=== PATIENT | female | born 1945 | race Caucasian/White ===

== ENCOUNTER 2019-08-24 12:04 | Outpatient (CLI) | payer MEDICARE, OTHER, SELFPAY ==
[2019-08-24 12:41] LABS: Basophils % 0.2 %; Eosinophils # 0.1 10^3/uL (0.0-0.8); Eosinophils % 0.3 %; Hematocrit 43.7 % (37.0-47.0); Hemoglobin 13.8 g/dL (11.5-15.3); Lymphocytes # 12.8 10^3/uL (0.8-4.8); Lymphocytes % 74.4 %; Mean Corpuscular HGB Conc 31.6 g/dL (30.0-36.0); Mean Corpuscular Hemoglobin 27.6 pg (28.0-34.0); Mean Corpuscular Volume 87.4 fL (81-99); Mean Platelet Volume 10.8 fL (7.4-10.4); Monocytes # 0.4 10^3/uL (0.2-0.9); Monocytes % 2.4 %; Neutrophils # 3.9 10^3/uL (1.8-7.7); Neutrophils % 22.6 %; Nucleated Red Blood Cells % 0 %; Platelet Count 140 10^3/cmm (130-400); Red Cell Distribution Width 12.8 % (12.1-15.1); White Blood Count 17.2 10^3/uL (4.0-10.0)
[2019-08-24 12:57] LABS: Alanine Aminotransferase 12 U/L (0-33); Albumin Level 4.4 g/dL (3.5-5.2); Alkaline Phosphatase 68 IU/L (35-105); Anion Gap 15.4 (5-19); Aspartate Amino Transferase 16 U/L (0-32); Blood Urea Nitrogen 15 mg/dL (8-23); Calcium 9.9 mg/dL (8.5-10.5); Carbon Dioxide 29 mmol/L (22-29); Chloride 101 mmol/L (98-107); Ferritin 24 ng/mL (15-150); Globulin 2.5 g/dL (1.3-4.6); Glucose 135 mg/dL (65-115); Iron 57 ug/dL (37-145); Lactate Dehydrogenase 159 U/L (135-214); Percent Saturation 16.2 % (20-50); Potassium 4.4 mmol/L (3.5-5.1); Sodium 141 mmol/L (136-145); Total Bilirubin 0.3 mg/dL (0.15-1.2); Total Iron Binding Capacity 351 mcg/dl; Total Protein 6.9 g/dL (6.6-8.7); Unsaturated Iron Binding 294 ug/dL (112-347)
[2019-08-24 13:10] LABS: Slide Review Slide Review Perform
--- NOTE | 2019-08-26 07:58 | ONC FU_ITS ---
Dr. Hilario Patient Follow-Up Note Patient: Zach Coffey Unit #: [id number]: 1945 Dicatated By: Joey Hilario M.D.Date of Visit:Aug 24, 2019 Onc Med Follow-up/Prog Note Chief Complaint: Chronic lymphocytic leukemia/iron deficiency anemia. History of Present Illness: This is a 74 year-old woman with chronic lymphocytic leukemia and iron deficiency anemia. The leukemia was initially diagnosed by peripheral blood flow cytometry in December of 2010. Clinically she appeared to have early stage disease, and thus far she has just been managed with observation. At the time of her initial evaluation, she also had evidence of iron deficiency, though she was just mildly anemic. She had been unable to tolerate oral iron supplements. She did complete parenteral iron replacement with Venofer in February 2012. In October 2013 she had recurrence of the anemia with her hemoglobin at that time having dropped to 9.6 g. The red cell indices were hypochromic/microcytic. I did opt to treat her again with a course of IV Venofer, which she completed in November 2013. She had a good clinical response. As of December 2017 she had become iron deficient again. She had a good response to parenteral iron replacement with Injectafer. Her other medical illnesses include hypertension, hyperlipidemia, type 2 diabetes, and GERD. She also has chronic fatigue and some chronic pain. She is a nonsmoker. INTERIM HISTORY: She is seen for a scheduled visit. I had last seen her in April, at that time she was recovering from a bout of shingles which had started 2 months earlier. At that point she was still having significant postherpetic neuralgia. She has since then been feeling better, though it has been very gradual. She still has some fatigue, though her energy is better now, as she had been exhausted. Her ECOG score is 1. She has good appetite. She has not had fever. She does report having some hot flashes. She recently has been in treatment for a yeast infection in her mouth. She has a morning cough. She does not complain of shortness of breath or chest pain. She was having constipation, but her bowels lately have been better. Bladder function has been okay. She has fairly generalized arthritis pain and she has lower back pain, but it is being managed adequately with gabapentin and Aleve. She has no focal neurologic symptoms. Medications: Aleve 1 Tablet (of 220 mg) Oral PRN, Ascorbic Acid 1 Tablet (of 500 mg) Oral daily, Gabapentin 1 Capsule (of 300 mg) Oral at bedtime, GlipiZIDE 1 (5 mg) Tablet Oral daily, MetFORMIN HCl 1 (500 mg) Tablet Oral b.i.d., Osteo Bi-Flex Joint Shield 1 Tablet Oral daily, 1 Tablet Oral daily, Singulair 1 Tablet (of 10 mg) Oral at bedtime Allergies: No Known Allergies. Review of Systems: Constitutional - She had a rough 4 months because of shingles. She still has fatigue, though her energy is better than it was, as she had been exhausted. She is trying to do all that she can. She has good appetite. She has not had fever. She does have some hot flashes. Her ECOG score is 1, ENMT - She has sinus congestion/drainage with a cough in the mornings. She has had some mouth sores. No sore throat or difficulty swallowing, Hematologic/Lymphatic - No abnormal bruising or bleeding, Respiratory - No shortness of breath. No pleuritic pain or hemoptysis, Cardiovascular - No angina pain. No palpitations, Gastrointestinal - No nausea or vomiting. She has heartburn off and on. She normally stays constipated, but it has been better lately. No blood in the stool or black stools, Genitourinary (F) - No dysuria or hematuria. No urinary frequency. No urgency or incontinence, Musculoskeletal - She has pain and stiffness in her back when she first gets up in the morning. She has swelling in her joints, Integumentary - No skin complications, Neurologic - She has had some headaches. She has some dizziness. No numbness/paresthesias or other focal neurologic symptoms, Psychiatric - No anxiety or depression. She has a hard time getting to sleep at night, which is nothing new for her. Vital Signs: Performed on Aug 24, 2019 13:50 Height - 64.00 in Weight - 179.2 lbs (HIGH) BSA - 1.87 sq.m BMI - 30.76 (HIGH) Temperature - 98.6 F Pulse - 89 /min Respiration - 18 /min BP - 120/66 mm(hg) O2 Sat - 92 % (LOW) Pain - 0 Physical Examination: Constitutional - She looks pretty good generally, Eyes - Sclerae nonicteric. Conjunctivae clear, ENMT - Her tongue is slightly coated. There are no other lesions noted in the oral cavity, Hematologic/Lymphatic - There are small cervical nodes bilaterally. There is a small axillary node on the left, approximately 1 cm, Respiratory - Lungs are clear with good air movement bilaterally, Cardiovascular - Heart rhythm is regular. There is a II/ systolic murmur. There is no gallop or rub noted, Abdomen - Soft. Liver and spleen are not enlarged. There is no abdominal mass or ascites noted and there is no inguinal adenopathy, Extremities - No edema. Pedal pulses are palpable bilaterally, Integumentary - She has no residual skin eruption, Neurologic - No focal neurologic deficits noted. Lab/Imaging: Test performed on Aug 24, 2019 12:20 Ferritin 24 ng/mL Iron 57 ug/dL LDH (Total) 159 U/L Sodium 141 mmol/L Potassium 4.4 mmol/L Chloride 101 mmol/L CO2 29 mmol/L UIBC 294 ug/dL Anion Gap 15.4 BUN 15 mg/dL Creatinine 0.7 mg/dL Cr Clearance (Est) 93.22 mL/min Glucose 135 mg/dL Calcium 9.9 mg/dL Protein, Total 6.9 g/dL Albumin 4.4 g/dL Globulin 2.5 g/dL Bilirubin, Total 0.3 mg/dL ALT (SGPT) 12 U/L AST (SGOT) 16 U/L Alkaline Phosphatase 68 IU/L WBC 17.2 10 3/uL RBC 5.00 10 6/uL HGB 13.8 g/dL HCT 43.7 % MCV 87.4 fL MCH 27.6 pg MCHC 31.6 g/dL RDW 12.8 % Platelet Count 140 10 3/cmm MPV 10.8 fL Neutrophils 3.9 10 3/uL Lymphocytes 12.8 10 3/uL Monocytes 0.4 10 3/uL Eosinophils 0.1 10 3/uL Basophils 0.0 10 3/uL Neutrophil % 22.6 % Lymphocyte % 74.4 % Monocyte % 2.4 % Eosinophil % 0.3 % Basophils % 0.2 % CBC Slide Review Slide Review Perform Test performed on Jul 31, 2019 09:56 TSH 2.59 uU/mL Cholesterol, Total 320.0 mg/dL HDL Cholesterol 58.0 mg/dL LDL Cholesterol 224.6 mg/dL VLDL Cholesterol 37.4 mg/dL Triglycerides 187.0 mg/dL Hemoglobin A1C 6.8 % Manual Lymphocytes 61.2 % Manual Monocytes 5.3 % Impression: 1. The patient has early stage chronic lymphocytic leukemia. She has been on observation with no evidence of disease progression. 2. She also has had recurrent iron deficiency anemia which responded well to parenteral iron replacement with Venofer. Her other medical illnesses include: 3. Hypertension. 4. Hyperlipidemia. 5. Type II diabetes. 6. GERD. 7. She has chronic musculoskeletal pain. During followup there has been no significant progression of the CLL and there has been no indication for treating it. She required treatment for iron deficiency anemia on several occasions, most recently in December 2017. She required treatment for herpes zoster in the fall 2018. She has been showing gradual recovery. She has otherwise been doing well clinically. Thus far there has been no further recurrence of the iron deficiency and there is been no significant progression of the chronic lymphocytic leukemia. Plan: She remains on observation/expectant management for the chronic lymphocytic leukemia and for the anemia. I will see her again in 6 months, or sooner as needed. Signed By: Joey Hilario M.D. <<Signature on File>>
== END 2019-08-24 12:05 | disposition home or self-care (01) ==
LOC: ONCMED 12:04
PROVIDERS: Family Provider Family Medicine; PCP Family Medicine; Visit Provider Internal Medicine Medical Oncology
DX: C91.10 Chronic lymphocytic leukemia of B-cell type not having achieved remission (principal); D50.9 Iron deficiency anemia, unspecified; I10 Essential (primary) hypertension; E78.5 Hyperlipidemia, unspecified; E11.9 Type 2 diabetes mellitus without complications; K21.9 Gastro-esophageal reflux disease without esophagitis; G89.29 Other chronic pain; M79.18 Myalgia, other site
CPT/HCPCS: 36415; 80053; 82728; 83540; 83550; 83615; 85025; G0463

== ENCOUNTER 2020-02-27 06:13 | Outpatient (CLI) | payer MEDICARE, BC, SELFPAY ==
[2020-02-27 13:51] LABS: Basophils # 0.1 10^3/uL (0.0-0.1); Basophils % 0.3 %; Eosinophils % 0.1 %; Hematocrit 47.6 % (37.0-47.0); Hemoglobin 14.1 g/dL (11.5-15.3); Lymphocytes # 16.4 10^3/uL (0.8-4.8); Lymphocytes % 73.7 %; Mean Corpuscular HGB Conc 29.6 g/dL (30.0-36.0); Mean Corpuscular Hemoglobin 27.3 pg (28.0-34.0); Mean Corpuscular Volume 92.1 fL (81-99); Mean Platelet Volume 10.9 fL (7.4-10.4); Monocytes # 0.6 10^3/uL (0.2-0.9); Monocytes % 2.9 %; Neutrophils # 5.06 10^3/uL (1.8-7.7); Neutrophils % 22.8 %; Nucleated Red Blood Cells % 0 %; Platelet Count 162 10^3/cmm (130-400); Red Blood Count 5.17 10^6/uL (4.1-5.3); Red Cell Distribution Width 13.4 % (12.1-15.1); White Blood Count 22.2 10^3/uL (4.0-10.0)
[2020-02-27 14:31] LABS: Alanine Aminotransferase 20 U/L (0-33); Alkaline Phosphatase 68 IU/L (35-105); Anion Gap 18.5 (5-19); Aspartate Amino Transferase 21 U/L (0-32); Blood Urea Nitrogen 23 mg/dL (8-23); Calcium 9.6 mg/dL (8.5-10.5); Carbon Dioxide 24 mmol/L (22-29); Chloride 101 mmol/L (98-107); Globulin 2.2 g/dL (1.3-4.6); Glucose 79 mg/dL (65-115); Lactate Dehydrogenase 223 U/L (135-214); Osmolality Calculated 284 mOsm/kg (285-295); Potassium 4.5 mmol/L (3.5-5.1); Sodium 139 mmol/L (136-145); Total Bilirubin 0.3 mg/dL (0.15-1.2); Total Protein 7.2 g/dL (6.6-8.7)
== END 2020-02-27 06:14 | disposition home or self-care (01) ==
PROVIDERS: PCP Family Medicine; Visit Provider Internal Medicine Medical Oncology
DX: C91.10 Chronic lymphocytic leukemia of B-cell type not having achieved remission (principal); D50.8 Other iron deficiency anemias; E11.9 Type 2 diabetes mellitus without complications; M54.5 Low back pain; R53.83 Other fatigue; R13.10 Dysphagia, unspecified
CPT/HCPCS: 80053; 83615; 85025

== ENCOUNTER 2020-08-27 13:12 | Outpatient (CLI) | payer MEDICARE, BC, SELFPAY ==
[2020-08-27 14:00] LABS: Hematocrit 43.3 % (37.0-47.0); Hemoglobin 13.3 g/dL (11.5-15.3); Mean Corpuscular HGB Conc 30.7 g/dL (30.0-36.0); Mean Corpuscular Hemoglobin 26.4 pg (28.0-34.0); Mean Corpuscular Volume 85.9 fL (81-99); Mean Platelet Volume 11.3 fL (7.4-10.4); Platelet Count 171 10^3/cmm (130-400); Red Blood Count 5.04 10^6/uL (4.1-5.3); Red Cell Distribution Width 15.8 % (12.1-15.1); White Blood Count 16.7 10^3/uL (4.0-10.0)
[2020-08-27 14:26] LABS: Alanine Aminotransferase 14 U/L (0-33); Albumin Level 4.7 g/dL (3.5-5.2); Alkaline Phosphatase 67 IU/L (35-105); Anion Gap 14.1 (5-19); Aspartate Amino Transferase 17 U/L (0-32); Blood Urea Nitrogen 20 mg/dL (8-23); Calcium 9.8 mg/dL (8.5-10.5); Carbon Dioxide 27 mmol/L (22-29); Chloride 101 mmol/L (98-107); Glucose 88 mg/dL (65-115); Lactate Dehydrogenase 164 U/L (135-214); Osmolality Calculated 288 mOsm/kg (285-295); Potassium 4.1 mmol/L (3.5-5.1); Sodium 138 mmol/L (136-145); Total Bilirubin 0.3 mg/dL (0.15-1.2); Total Protein 6.7 g/dL (6.6-8.7)
[2020-08-27 15:29] LABS: Slide Review Slide Review Perform
[2020-08-27 15:30] LABS: Absolute Eosinophils 0.1 10^3/cmm (0.0-0.7); Absolute Segmented Neutrophil 6.3 10/cmm (1.6-7.1); Band Neutrophils Absolute 0.7 10^3/cmm (0.0-1.2); Eosinophils 1 %; Lymphocytes 51 %; Monocytes Absolute 0.3 10^3/cmm (0.1-0.6); Platelet Estimate Normal (Normal); Segmented Neutrophils 38 %; Smudge Cells 1+; Total Cells Counted 100 (0-100)
--- NOTE | 2020-08-30 16:04 | ONC FU_ITS ---
Dr. Hilario Patient Follow-Up Note Patient: Zach Coffey Unit #: [id number]: 1945 Dicatated By: Joey Hilario M.D.Date of Visit:Aug 27, 2020 Onc Med Follow-up/Prog Note Chief Complaint: Chronic lymphocytic leukemia/iron deficiency anemia. History of Present Illness: This is a 75 year-old woman with chronic lymphocytic leukemia and iron deficiency anemia. The leukemia was initially diagnosed by peripheral blood flow cytometry in December of 2010. Clinically she appeared to have early stage disease, and expectant management was recommended. At the time of her initial evaluation, she also had evidence of iron deficiency, though she was just mildly anemic. She had been unable to tolerate oral iron supplements. She did complete parenteral iron replacement with Venofer in February 2012. In October 2013 she had recurrence of the anemia with her hemoglobin at that time having dropped to 9.6 g. The red cell indices were hypochromic/microcytic. I did opt to treat her again with a course of IV Venofer, which she completed in November 2013. She had a good clinical response. As of December 2017 she had become iron deficient again. She had a good response to parenteral iron replacement with Injectafer. During that time there has been no indication to initiate any treatment for the CLL, as she continued to have mild, stable lymphocytosis and normal platelet counts. Her other medical illnesses include hypertension, hyperlipidemia, type 2 diabetes, and GERD. She also has chronic fatigue and some chronic pain. She is a nonsmoker. INTERIM HISTORY: She has been feeling pretty good generally. She does have fatigue, but she is able to do light work. ECOG score is 1. Her appetite is good. She has not had fever or night sweats. She does have hot flashes. She has some shortness of breath and wheezing, and she also has some cough. She occasionally has pain on the left side of the chest. She has just occasional acid reflux. She has chronic constipation. She is managing it with FISH oil and all of oil. She feels like her bladder has dropped, but bladder function remains adequate. She has pain in her neck and back and she says her arms have ached for a while. She also has pain in her hips, and she complains that she has knots of her spine. She has some sinus headaches. She sometimes has dizziness. She has some numbness in her hands, but that actually has improved somewhat. Medications: Aleve 1 Tablet (of 220 mg) Oral PRN, Ascorbic Acid 1 Tablet (of 500 mg) Oral daily, Gabapentin 1 Capsule (of 300 mg) Oral at bedtime, GlipiZIDE 1 (5 mg) Tablet Oral daily, MetFORMIN HCl 1 (500 mg) Tablet Oral b.i.d., Osteo Bi-Flex Joint Shield 1 Tablet Oral daily, 1 Tablet Oral daily, Singulair 1 Tablet (of 10 mg) Oral at bedtime Allergies: No Known Allergies. Vital Signs: Performed on Aug 27, 2020 15:19 Height - 64.00 in Weight - 174.6 lbs (LOW) BSA - 1.85 sq.m BMI - 29.97 Temperature - 98.0 F (LOW) Pulse - 79 /min Respiration - 16 /min BP - 165/94 mm(hg) (HIGH) O2 Sat - 97 % Pain - 6 Physical Examination: Constitutional - She looks pretty good generally, Eyes - Sclerae nonicteric. Conjunctivae clear, ENMT - There are no lesions noted in the oral cavity, Hematologic/Lymphatic - There are small cervical nodes bilaterally. There is a small supraclavicular node on the left. I do not feel any axillary adenopathy, Respiratory - Lungs are clear with good air movement bilaterally, Cardiovascular - Heart rhythm is regular. There is a II/ systolic murmur. There is no gallop or rub noted, Abdomen - Soft. Liver and spleen are not enlarged. There is no abdominal mass or ascites noted and there is no inguinal adenopathy, Extremities - No edema, Neurologic - No focal neurologic deficits noted. Lab/Imaging: Test performed on Aug 27, 2020 13:45 LDH (Total) 164 U/L Sodium 138 mmol/L Potassium 4.1 mmol/L Chloride 101 mmol/L CO2 27 mmol/L Anion Gap 14.1 BUN 20 mg/dL Creatinine 0.7 mg/dL Cr Clearance (Est) 89.49 mL/min Glucose 88 mg/dL Osmolality - Calculated 288 mOsm/kg Calcium 9.8 mg/dL Protein, Total 6.7 g/dL Albumin 4.7 g/dL Globulin 2.0 g/dL Bilirubin, Total 0.3 mg/dL ALT (SGPT) 14 U/L AST (SGOT) 17 U/L Alkaline Phosphatase 67 IU/L WBC 16.7 10 3/uL Manual Segs % 38 % Manual Bands % 4.0 % RBC 5.04 10 6/uL HGB 13.3 g/dL Manual Lymphs % 51 % Atypical Lymphs % 4.0 % HCT 43.3 % MCV 85.9 fL Total Cells Counted 100 Manual Monos % 2.0 % MCH 26.4 pg Manual Eos % 1 % MCHC 30.7 g/dL Manual Basos % 0.0 % RDW 15.8 % Platelet Count 171 10 3/cmm MPV 11.3 fL Smudge Cells 1+ CBC Slide Review Slide Review Perform Platelet Estimate Normal Manual Segs Abs 6.3 10/cmm Manual Bands Abs 0.7 10 3/cmm Manual Neutrophils Abs 7.0 10 3/cmm Manual Monocytes Abs 0.3 10 3/cmm Manual Eosinophils Abs 0.1 10 3/cmm Manual Basophils Abs 0.0 10 3/cmm Problem List: 1. Chronic lymphocytic leukemia, Hunter stage I. She has been on expectant management. 2. Iron deficiency anemia. 3. Hypertension. 4. Hyperlipidemia. 5. Type II diabetes. 6. GERD. 7. She has chronic fatigue and chronic musculoskeletal pain. Problems Addressed with this Encounter and Plan: 1. Patient with early stage chronic lymphocytic leukemia. She has managed expectantly. During follow-up there has been no indication to initiate any treatment. At this point she appears stable clinically with no obvious progression of the chronic lymphocytic leukemia. She remains on observation/expectant management. I will see her again in 6 months. 2. She has had recurrent iron deficiency anemia. She has had poor tolerance for oral iron supplements. She has responded well to parenteral iron replacement, most recently in December 2017. Her hemoglobin/hematocrit levels have since then remained stable. Signed By: Joey Hilairo M.D. <<Signature on File>>
== END 2020-08-27 13:13 | disposition home or self-care (01) ==
LOC: ONCMED 13:15
PROVIDERS: PCP Family Medicine; Visit Provider Internal Medicine Medical Oncology
DX: C91.10 Chronic lymphocytic leukemia of B-cell type not having achieved remission (principal); D50.8 Other iron deficiency anemias; E11.9 Type 2 diabetes mellitus without complications
CPT/HCPCS: 36415; 80053; 83615; 85007; 85025

== ENCOUNTER 2021-04-01 14:25 | Outpatient (CLI) | payer MEDICARE, BC, SELFPAY ==
[2021-04-01 15:23] LABS: Basophils # 0.1 10^3/uL (0.0-0.1); Basophils % 0.3 %; Eosinophils # 0.1 10^3/uL (0.0-0.8); Eosinophils % 0.2 %; Hematocrit 44.6 % (37.0-47.0); Hemoglobin 13.9 g/dL (11.5-15.3); Lymphocytes % 71.4 %; Mean Corpuscular HGB Conc 31.2 g/dL (30.0-36.0); Mean Corpuscular Hemoglobin 28.1 pg (28.0-34.0); Mean Corpuscular Volume 90.3 fl (81-99); Mean Platelet Volume 11.3 fL (7.4-10.4); Monocytes # 0.8 10^3/uL (0.2-0.9); Monocytes % 2.8 %; Neutrophils # 7.02 10^3/uL (1.8-7.7); Neutrophils % 25.1 %; Nucleated Red Blood Cells % 0 %; Platelet Count 242 10^3/cmm (130-400); Red Blood Count 4.94 10^6/uL (4.1-5.3); Red Cell Distribution Width 14.1 % (12.1-15.1)
[2021-04-01 16:03] LABS: Alanine Aminotransferase 12 U/L (0-33); Albumin Level 4.7 g/dL (3.5-5.2); Alkaline Phosphatase 76 IU/L (35-105); Anion Gap 15.8 (5-19); Aspartate Amino Transferase 16 U/L (0-32); Blood Urea Nitrogen 17 mg/dL (8-23); Carbon Dioxide 28 mmol/L (22-29); Chloride 100 mmol/L (98-107); Globulin 2.1 g/dL (1.3-4.6); Glucose 68 mg/dL (65-115); Iron 46 ug/dL (37-145); Lactate Dehydrogenase 198 U/L (135-214); Osmolality Calculated 290 mOsm/kg (285-295); Potassium 3.8 mmol/L (3.5-5.1); Sodium 140 mmol/L (136-145); Total Bilirubin 0.3 mg/dL (0.15-1.2); Total Iron Binding Capacity 382 mcg/dl; Total Protein 6.8 g/dL (6.6-8.7); Unsaturated Iron Binding 336 ug/dL (112-347)
[2021-04-01 17:37] LABS: Slide Review Slide Review Perform
--- NOTE | 2021-04-02 07:07 | ONC FU_ITS ---
Dr. Hilario Patient Follow-Up Note Patient: Zach Coffey Unit #: [id number]: [id number] Dicatated By: Joey Hilario M.D.Date of Visit:Apr 01, 2021 Onc Med Follow-up/Prog Note Chief Complaint: Chronic lymphocytic leukemia/iron deficiency anemia. History of Present Illness: This is a 76 year-old woman with chronic lymphocytic leukemia and iron deficiency anemia. The leukemia was initially diagnosed by peripheral blood flow cytometry in December of 2010. Clinically she appeared to have early stage disease, and expectant management was recommended. At the time of her initial evaluation, she also had evidence of iron deficiency, though she was just mildly anemic. She had been unable to tolerate oral iron supplements. She did complete parenteral iron replacement with Venofer in February 2012. In October 2013 she had recurrence of the anemia with her hemoglobin at that time having dropped to 9.6 g. The red cell indices were hypochromic/microcytic. I did opt to treat her again with a course of IV Venofer, which she completed in November 2013. She had a good clinical response. As of December 2017 she had become iron deficient again. She had a good response to parenteral iron replacement with Injectafer. During followup she has continued expectant management for the CLL, as there has been no indication for treatment. Her other medical illnesses include hypertension, hyperlipidemia, type 2 diabetes, and GERD. She also has chronic fatigue and some chronic pain. She is a nonsmoker. INTERIM HISTORY: She has been feeling pretty good generally. Her main complaint is that she has been having pain in her neck/right shoulder area. The pain radiates into the right arm all the way to the hand. She has started physical therapy. She also reports having pain associated with knots in the lower back on both sides, just above the hips. She has somewhat limited activity, but she is able to do light work. ECOG score is 1. Her appetite has been good. She has not had fever or night sweats, she does have some hot spells. She has sinus drainage and cough, attributable to allergies. She thinks she has had some yeast infection in her mouth and throat. She has occasional wheezing, but her breathing generally is pretty good. She does not complain of chest pain. She has very occasional acid reflux. She has some chronic constipation, though bowel function and bladder function remain adequate. She has occasional headache. She does not complain of dizziness. She has some numbness in her hands and in her left big toe. Medications: Aleve 1 Tablet (of 220 mg) Oral PRN, Ascorbic Acid 1 Tablet (of 500 mg) Oral daily, Gabapentin 1 Capsule (of 300 mg) Oral at bedtime, GlipiZIDE 1 (5 mg) Tablet Oral daily, MetFORMIN HCl 1 (500 mg) Tablet Oral b.i.d., Osteo Bi-Flex Joint Shield 1 Tablet Oral daily, 1 Tablet Oral daily, Singulair 1 Tablet (of 10 mg) Oral at bedtime Allergies: No Known Allergies. Vital Signs: Performed on Apr 01, 2021 16:14 Height - 64.00 in Weight - 175 lbs (HIGH) BSA - 1.85 sq.m BMI - 30.04 (HIGH) Temperature - 97.6 F (LOW) Pulse - 96 /min Respiration - 16 /min BP - 117/79 mm(hg) O2 Sat - 95 % (LOW) Pain - 6 Fatigue - 0 Physical Examination: Constitutional - She looks pretty good generally, Eyes - Sclerae nonicteric. Conjunctivae clear, ENMT - No lesions noted in the oral cavity, Hematologic/Lymphatic - There are small cervical nodes bilaterally. There is no clavicular or axillary adenopathy noted, Respiratory - Lungs are clear with good air movement bilaterally, Cardiovascular - Heart rhythm is regular. There is a II/ systolic murmur. There is no gallop or rub noted, Abdomen - Soft. Liver and spleen are not enlarged. There is no abdominal mass or ascites noted and there is no inguinal adenopathy, Extremities - No edema, Neurologic - No focal neurologic deficits noted. Lab/Imaging: Test performed on Apr 01, 2021 14:50 Iron 46 mcg/dL LDH (Total) 198 U/L Sodium 140 mmol/L Iron Binding Capacity (TIBC) 382 mcg/dl Potassium 3.8 mmol/L % Iron Saturation 12.0 % Chloride 100 mmol/L CO2 28 mmol/L UIBC 336 mcg/dL Anion Gap 15.8 BUN 17 mg/dL Creatinine 0.6 mg/dL Cr Clearance (Est) 103.08 mL/min Glucose 68 mg/dL Osmolality - Calculated 290 mOsm/kg Calcium 10.0 mg/dL Protein, Total 6.8 g/dL Albumin 4.7 g/dL Globulin 2.1 g/dL Bilirubin, Total 0.3 mg/dL ALT (SGPT) 12 U/L AST (SGOT) 16 U/L Alkaline Phosphatase 76 IU/L WBC 28.0 10 3/uL RBC 4.94 10 6/uL HGB 13.9 g/dL HCT 44.6 % MCV 90.3 fl MCH 28.1 pg MCHC 31.2 g/dL RDW 14.1 % Platelet Count 242 10 3/cmm MPV 11.3 fL Neutrophils 7.02 10 3/uL Lymphocytes 20.0 10 3/uL Monocytes 0.8 10 3/uL Eosinophils 0.1 10 3/uL Basophils 0.1 10 3/uL Neutrophil % 25.1 % Lymphocyte % 71.4 % Monocyte % 2.8 % Eosinophil % 0.2 % Basophils % 0.3 % NRBC % 0 % CBC Slide Review Slide Review Perform SLIDE REVIEWED AGREES WITH THE AUTO RESULT Test performed on Dec 12, 2020 09:10 TSH 3.838 uU/mL Cholesterol, Total 304.0 mg/dL HDL Cholesterol 52.0 mg/dL LDL Cholesterol 214.6 mg/dL VLDL Cholesterol 37.4 mg/dL Triglycerides 187.0 mg/dL Hemoglobin A1C 6.7 % Manual Lymphocytes 77.9 % Manual Monocytes 2.2 % Problem List: 1. Chronic lymphocytic leukemia, Hunter stage I. She has been on expectant management. 2. Iron deficiency anemia. 3. Hypertension. 4. Hyperlipidemia. 5. Type II diabetes. 6. GERD. 7. She has chronic fatigue and chronic musculoskeletal pain. Problems Addressed with this Encounter and Plan: 1. Patient with early stage chronic lymphocytic leukemia. She has been managed expectantly. During follow-up there has been some increase in her lymphocyte count, but thus far there has been no indication to initiate any treatment. She remains on observation/expectant management. I will see her again in 6 months. 2. She has had recurrent iron deficiency anemia. She has had poor tolerance for oral iron supplements. She has responded well to parenteral iron replacement, most recently in December 2017. She does have evidence of iron deficiency with her transferrin saturation low at 15%, but with normal hemoglobin/hematocrit levels she will just continue her oral iron supplementation as she is able to tolerate. Signed By: Joey Hilario M.D. <<Signature on File>>
== END 2021-04-01 14:26 | disposition home or self-care (01) ==
LOC: ONCMED 14:31
PROVIDERS: PCP Family Medicine; Visit Provider Internal Medicine Medical Oncology
DX: I10 Essential (primary) hypertension (principal); E78.5 Hyperlipidemia, unspecified; E11.9 Type 2 diabetes mellitus without complications; K21.9 Gastro-esophageal reflux disease without esophagitis; R53.82 Chronic fatigue, unspecified; G89.29 Other chronic pain; Z79.899 Other long term (current) drug therapy
CPT/HCPCS: 36415; 80053; 83540; 83550; 83615; 85025; 99214

== ENCOUNTER 2021-10-06 10:06 | Outpatient (CLI) | payer MEDICARE, BC, SELFPAY ==
[2021-10-06 10:51] LABS: Basophils # 0.1 10^3/uL (0.0-0.1); Basophils % 0.3 %; Eosinophils % 0.2 %; Hematocrit 42.9 % (37.0-47.0); Hemoglobin 13.7 g/dL (11.5-15.3); Lymphocytes # 14.3 10^3/uL (0.8-4.8); Mean Corpuscular HGB Conc 31.9 g/dL (30.0-36.0); Mean Corpuscular Hemoglobin 28.5 pg (28.0-34.0); Mean Corpuscular Volume 89.4 fl (81-99); Mean Platelet Volume 10.9 fL (7.4-10.4); Monocytes # 0.5 10^3/uL (0.2-0.9); Monocytes % 2.4 %; Neutrophils # 4.19 10^3/uL (1.8-7.7); Nucleated Red Blood Cells % 0 %; Platelet Count 157 10^3/cmm (130-400); Red Cell Distribution Width 13.5 % (12.1-15.1); White Blood Count 19.1 10^3/uL (4.0-10.0)
[2021-10-06 11:11] LABS: Alanine Aminotransferase 13 U/L (0-33); Albumin Level 4.7 g/dL (3.5-5.2); Alkaline Phosphatase 69 IU/L (35-105); Anion Gap 13.4 (5-19); Aspartate Amino Transferase 14 U/L (0-32); Blood Urea Nitrogen 15 mg/dL (8-23); Calcium 9.6 mg/dL (8.5-10.5); Carbon Dioxide 27 mmol/L (22-29); Chloride 103 mmol/L (98-107); Glucose 176 mg/dL (65-115); Iron 66 ug/dL (37-145); Lactate Dehydrogenase 161 U/L (135-214); Osmolality Calculated 293 mOsm/kg (285-295); Percent Saturation 18.3 % (20-50); Potassium 4.4 mmol/L (3.5-5.1); Sodium 139 mmol/L (136-145); Total Bilirubin 0.4 mg/dL (0.15-1.2); Total Iron Binding Capacity 359 mcg/dl; Total Protein 6.7 g/dL (6.6-8.7); Unsaturated Iron Binding 293 ug/dL (112-347)
--- NOTE | 2021-10-06 18:07 | ONC FU_ITS ---
Dr. Hilario Patient Follow-Up Note Patient: Zach Coffey Unit #: [id number]: 1945 Dicatated By: Joey Hilario M.D.Date of Visit:Oct 06, 2021 Onc Med Follow-up/Prog Note Chief Complaint: Chronic lymphocytic leukemia/iron deficiency anemia. History of Present Illness: This is a 76 year-old woman with chronic lymphocytic leukemia and iron deficiency anemia. The leukemia was initially diagnosed by peripheral blood flow cytometry in December of 2010. Clinically she appeared to have early stage disease, and expectant management was recommended. At the time of her initial evaluation, she also had evidence of iron deficiency, though she was just mildly anemic. She had been unable to tolerate oral iron supplements. She did complete parenteral iron replacement with Venofer in February 2012 and again in October 2013. She had a good clinical response. As of December 2017 she had become iron deficient again. At that time she had a good response to parenteral iron replacement with Injectafer. During followup she has continued expectant management for the CLL, as there has been no indication for treatment. Her other medical illnesses include hypertension, hyperlipidemia, type 2 diabetes, and GERD. She also has chronic fatigue and some chronic pain. She is a nonsmoker. She is seen for a follow-up visit. She indicates that in April she had a bad spell of chest congestion, but that did eventually resolve. She has continued supplementation with vitamin daily and a Slow Fe tablet daily. She has pretty good energy most of the time. She is able to do some light work. ECOG score is 1. Her appetite has been good. Blood sugar has been okay. She has not had fever since the illness in April. She says her night sweating has not been as bad. He has chronic sinus symptoms, but those have been managed pretty well with montelukast and with Zyrtec as needed. She has occasional sore mouth, which she attributes to yeast. She currently is not having cough, and she says her breathing is okay. She has not been having any chest pain. She has no GI or complaints. She has been having some pain in her neck and shoulders. She has just occasional headache. She has not been having numbness or tingling, but she does complain that her hands tend to lock up. Medications: Aleve 1 Tablet (of 220 mg) Oral PRN, Ascorbic Acid 1 Tablet (of 500 mg) Oral daily, GlipiZIDE 1 (5 mg) Tablet Oral daily, MetFORMIN HCl 1 (500 mg) Tablet Oral b.i.d., Osteo Bi-Flex Joint Shield 1 Tablet Oral daily, 1 Tablet Oral daily, Singulair 1 Tablet (of 10 mg) Oral at bedtime Allergies: No Known Allergies. Vital Signs: Performed on Oct 06, 2021 12:31 Height - 64.00 in BP - 158/84 mm(hg) (HIGH) Performed on Oct 06, 2021 12:31 Height - 64.00 in Weight - 174.4 lbs (LOW) BSA - 1.85 sq.m BMI - 29.94 Temperature - 97.8 F (LOW) Pulse - 73 /min Respiration - 18 /min BP - 160/85 mm(hg) (HIGH) O2 Sat - 95 % (LOW) Pain - 0 Fatigue - 6 Physical Examination: Constitutional - She looks pretty good generally, Eyes - Sclerae nonicteric. Conjunctivae clear, ENMT - No lesions noted in the oral cavity, Hematologic/Lymphatic - No cervical, clavicular, or axillary adenopathy noted, Respiratory - Lungs are clear with good air movement bilaterally, Cardiovascular - Heart rhythm is regular. There is a II/ systolic murmur. There is no gallop or rub noted, Abdomen - Soft. Liver and spleen are not enlarged. There is no abdominal mass or ascites noted and there is no inguinal adenopathy, Extremities - No edema, Neurologic - No focal neurologic deficits noted. Lab/Imaging: Test performed on Oct 06, 2021 10:41 Iron 66 mcg/dL LDH (Total) 161 U/L Sodium 139 mmol/L Iron Binding Capacity (TIBC) 359 mcg/dl Potassium 4.4 mmol/L % Iron Saturation 18.3 % Chloride 103 mmol/L CO2 27 mmol/L UIBC 293 mcg/dL Anion Gap 13.4 BUN 15 mg/dL Creatinine 0.6 mg/dL Cr Clearance (Est) 102.73 mL/min Glucose 176 mg/dL Osmolality - Calculated 293 mOsm/kg Calcium 9.6 mg/dL Protein, Total 6.7 g/dL Albumin 4.7 g/dL Globulin 2.0 g/dL Bilirubin, Total 0.4 mg/dL ALT (SGPT) 13 U/L AST (SGOT) 14 U/L Alkaline Phosphatase 69 IU/L WBC 19.1 10 3/uL RBC 4.80 10 6/uL HGB 13.7 g/dL HCT 42.9 % MCV 89.4 fl MCH 28.5 pg MCHC 31.9 g/dL RDW 13.5 % Platelet Count 157 10 3/cmm MPV 10.9 fL Neutrophils 4.19 10 3/uL Lymphocytes 14.3 10 3/uL Monocytes 0.5 10 3/uL Eosinophils 0.0 10 3/uL Basophils 0.1 10 3/uL Neutrophil % 22.0 % Lymphocyte % 75.0 % Monocyte % 2.4 % Eosinophil % 0.2 % Basophils % 0.3 % NRBC % 0 % Problem List: 1. Chronic lymphocytic leukemia, [place]hn[place] stage I. She has been on expectant management. 2. Iron deficiency anemia. 3. Hypertension. 4. Hyperlipidemia. 5. Type II diabetes. 6. GERD. 7. She has chronic fatigue and chronic musculoskeletal pain. Problems Addressed with this Encounter and Plan: 1. Patient with early stage chronic lymphocytic leukemia. She has been managed expectantly. During initial follow-up there was some increase in her lymphocyte count, but that seems to have stabilized. Thus far there has been no indication for treatment. She continues on observation/expectant management. She will be scheduled for a follow-up visit in 6 months. 2. She has had recurrent iron deficiency anemia. She has had relatively poor tolerance for oral iron supplements, and she has been given parenteral iron replacement on several occasions, most recently in December 2017. During follow-up her transferrin saturation has been a little low, but thus far there has been no recurrence of the anemia. She will continue taking a Slow Fe tablet daily, which she has been able to tolerate, and she also takes a vitamin daily. Signed By: Joey Hilario M.D. <<Signature on File>>
== END 2021-10-06 10:07 | disposition home or self-care (01) ==
LOC: ONCMED 10:09
PROVIDERS: PCP Family Medicine; Visit Provider Internal Medicine Medical Oncology
DX: C91.10 Chronic lymphocytic leukemia of B-cell type not having achieved remission (principal); D50.9 Iron deficiency anemia, unspecified
CPT/HCPCS: 36415; 80053; 83540; 83550; 83615; 85025; 99214

== ENCOUNTER 2023-03-11 10:39 | Oncology outpatient (recurring) (ONCR) | payer MEDICARE, BC, SELFPAY | END 2023-03-27 23:59 | disposition home or self-care (01) | LOC: ONCMED 10:40 | PROVIDERS: PCP Family Medicine; Visit Provider Nurse Practitioner Family | DX: C91.10 Chronic lymphocytic leukemia of B-cell type not having achieved remission (principal); D50.9 Iron deficiency anemia, unspecified; Z79.899 Other long term (current) drug therapy | CPT/HCPCS: 99213 ==